=== PATIENT | female | born 2000 | race Caucasian/White ===

== ENCOUNTER 2021-01-31 14:49 | Emergency (ER) | payer OTHER, SELFPAY ==
[2021-01-31 14:51] VITALS: BP 130/73; PULSE 83; RESP 16; TEMP 36.6; O2SAT 100; BMI 25.0
--- NOTE | 2021-01-31 14:59 | RAD_ITS ---
STUDY: X-RAY - RIGHT HAND REASON FOR EXAM: Female, 20 years old. injury TECHNIQUE: 3 view(s) of the hand. COMPARISON: None. FINDINGS: Normal radiocarpal articulation. Normal distal radioulnar joint. Normal visualized carpal bones. Normal carpal articulations Normal carpometacarpal articulation of the thumb. Normal second through fifth carpometacarpal joints. Acute nondisplaced oblique fracture the base of the first metacarpal bone. Normal metacarpophalangeal joint of the thumb. Normal interphalangeal joint of the thumb. Normal proximal and distal phalanges of the thumb. Normal metacarpophalangeal joints of the second through fifth fingers. Normal proximal and distal interphalangeal joints of the second through fifth fingers. Normal phalanges of the second through fifth fingers. The soft tissue structures are unremarkable. RAD/Hand Min 3 Views IMPRESSION: Acute nondisplaced oblique fracture the base of the first metacarpal bone. Electronically Signed: Dick Noel MD at 15:19 EDT Tel , Service support ,
--- NOTE | 2021-01-31 15:00 | EDS_ITS ---
HPI History of Present Illness Chief Complaint: Upper Extremity Injury Informant: patient Narrative Narrative: 20-year-old female presents with a right hand injury. Patient states that last night approximately 0230 hours she fell down some stairs. She noted immediately she had pain in the thenar eminence. She notes that it is very swollen and painful to move. She denies any other injuries. PFSH PFSH no medical history Home Medications NK 01/31/21 [History Last Taken Unknown] hydrocodone-acetaminophen 1 tab PO Q6H PRN PRN 3 Days #10 tablet 01/31/21 [Rx Last Taken Unknown] Allergy/AdvReac Type Severity Reaction Status Date / Time No Known Allergies Allergy Verified 01/31/21 14:51 Surgical History (Updated 01/31/21 @ 15:07 by Deonna Krause) History of tonsillectomy no surgical history Social History (Updated 01/31/21 @ 15:[address] Lobo Farias, DO) Smoking Status: Never smoker substance use type: does not use ROS ROS ED Constitutional Constitutional ED: Denies chills or weight loss Eyes Eyes: Denies change in vision or diplopia ENT ENT ED: Denies ear pain, rhinorrhea or sore throat Cardiovascular Cardiovascular: Denies chest pain, orthopnea, palpitations or racing heartbeat Respiratory/Chest Respiratory/Chest: Denies cough, dyspnea or orthopnea Gastrointestinal Gastrointestinal: Denies abdominal pain, diarrhea, nausea or vomiting Genitourinary Genitourinary ED: Denies dysuria, hematuria or urinary frequency Musculoskeletal Musculoskeletal: Reports other Details: See history of present illness ; Denies arthralgias or myalgias Integumentary Denies abscess or rash Neurologic Neurologic: Denies headache(s) or weakness Psychiatric Psychiatric: Denies anxiety, depression, suicidal ideation or suicidal thoughts Endocrine Endocrinology: Denies polydipsia, polyphagia or polyuria Allergic/Immunologic Allergic/Immunologic ED: Denies mouth swelling, tongue swelling or urticaria EXAM Physical Exam Const Vital Signs: 01/31/21 14:51 Temperature 97.8 F Temperature Source Temporal Pulse Rate 83 Respiratory Rate 16 Blood Pressure 130/73 H Blood Pressure Mean 92 Pulse Ox 100 Oxygen Delivery Method Room Air Positive well nourished and well developed General Appearance ED: well developed HEENT Reports normocephalic, head/scalp atraumatic and moist mucous membranes Eyes PERRL and EOMs intact bilaterally Neck no lymphadenopathy, supple and no JVD Resp normal respiratory effort and clear to auscultation bilaterally Cardio regular rate, regular rhythm and no murmurs GI normal to inspection, nondistended, normoactive bowel sounds and non-tender Palpation: soft Back/Spine no CVA tenderness and normal ROM Extremity Extremity Narrative: Patient does have opposition but it is painful and weak. She has tenderness and swelling in the thenar eminence. There is no tenderness along the dorsum of the first metacarpal. No tenderness in the anatomic snuffbox. Neurovascularly intact distal. General Extremety ED: Negative for edema General Extremity: Negative for edema Neuro oriented x3 and CN's II-XII intact bilaterally Sensorium / Orientation: alert Motor Exam: strength 5/5 throughout Psych mental status grossly normal Mood & Affect: Negative for depressed or tearful Skin no rashes or lesions noted and no wounds MDM MDM MDM Narrative Medical decision making narrative: My interpretation of the plain films of the right hand is comminuted base of the first metacarpal fracture. Patient was placed in a well-padded thumb spica plaster splint made by this physician. Neurovascular intact pre and post application. Patient was unable to get her 1 ring off of her finger she was able to get another one off though. She would prefer to not have it cut off and will try to work on getting it off at home. Case discussed with Dr. Horne who is on-call for orthopedics. He would like the patient referred to hand surgery. I will refer her to the [facility] in [place]. Discharge Plan Triage Chief Complaint: Upper Extremity Injury ED Provider: Lobo Farias Dx/Rx/DC Orders Clinical Impression: First metacarpal bone fracture Instructions: ED Closed Hand Fracture (Adult) Prescriptions: New hydrocodone-acetaminophen [hydrocodone-acetaminophen] 1 TABLET tablet 1 tab PO Q6H PRN PRN (Reason: Pain) 3 Days Qty: 10 RF: 0 No Action NK RF: 0 Primary Care Provider: Vilma Ramsey Referrals: Vilma Ramsey MD [Primary Care Provider] - Activity Restrictions/Additional Instructions: Please call [facility] at [phone] to schedule an appointment with hand surgery. Disposition Disposition: Home, Self Care
== END 2021-01-31 16:42 | disposition home or self-care (01) ==
LOC: ED 15:49
PROVIDERS: Emergency Provider Emergency Medicine; PCP Internal Medicine
DX: S62.234A Other nondisplaced fracture of base of first metacarpal bone, right hand, initial encounter for closed fracture (principal); W10.9XXA Fall (on) (from) unspecified stairs and steps, initial encounter; Y93.9 Activity, unspecified; Y92.9 Unspecified place or not applicable; Y99.9 Unspecified external cause status
CPT/HCPCS: 29125; 73130; 99282